=== PATIENT | female | born 1950 | race Caucasian/White ===

== ENCOUNTER 2016-11-02 14:00 | Emergency (ER) | payer SELFPAY ==
[~2016-11-02] VITALS: Ht 154.9 cm; Wt 62.8 kg
[2016-11-02 14:40] VITALS: BP 111/68
[2016-11-02] MEDS ORDERED: LISINOPRIL-HCT1 EAC3 PO (17:31)
[2016-11-02] MEDS ORDERED: KLOR-CON 88 MEQ PO (17:31)
[2016-11-02 18:56] LABS: HEMATOCRIT 38.6 % (36.0-46.0); MCH 33.8 PG (29.0-34.0); MCHC 34.2 G/DL (30.0-36.0); MEAN PLAT.VOLUME 9.5 uM^3 (9.5-12.4); PLATELET COUNT 288 K/uL (156-360); RBC DIS.WIDTH-CV 12.3 % (11.8-14.6); RBC DIS.WIDTH-SD 43.5 % (39-53); WHITE BLOOD COUNT 5.4 K/uL (4.1-10.2)
[2016-11-02 19:05] LABS: CHLORIDE 96 mEq/L (99-109); POTASSIUM 4.1 mEq/L (3.7-5.4); SODIUM 136 mEq/L (136-147)
[2016-11-02 19:07] LABS: GLUCOSE 102 mg/dL (70-99)
[2016-11-02 19:08] LABS: ANION GAP 13 MEQ/L (2-14)
[2016-11-02 19:09] LABS: TOTAL BILIRUBIN 0.5 mg/dL (0.0-1.0)
[2016-11-02 19:10] LABS: ALKALINE PHOSPHATASE 90 IU/L (3-129)
[2016-11-02 19:11] LABS: GFR ESTIMATE (CALCULATED) 40 mL/min/
[2016-11-02 19:12] LABS: UREA NITROGEN (BUN) 24 mg/dL (9-23)
[2016-11-02 19:14] LABS: URIC ACID 9.6 mg/dL (3.1-9.2)
[2016-11-02 19:55] LABS: ERTH.SED.RATE 41 MM/HR (0-30)
[2016-11-02 19:58] LABS: C-REACTIVE PROTEIN 9.1 MG/L (0-10); SAMPLE HEMOLYSIS CHECK 0; SAMPLE ICTERIC CHECK 0; SAMPLE LIPEMIA CHECK 0
[2016-11-02] MEDS ORDERED: PERCOCET 5/31 TABLET PO (21:17)
[2016-11-02] MEDS ORDERED: KEFLEX500 MG PO (21:17)
== END 2016-11-02 21:58 | disposition home or self-care (01) ==
LOC: EME 14:00
PROVIDERS: Nurse Practitioner Family
PROC: 0H9GXZZ Drainage of Left Hand Skin, External Approach (ICD-10-PCS; principal; 2016-11-02)
DX: L02.512 Cutaneous abscess of left hand (principal); N28.9 Disorder of kidney and ureter, unspecified; R79.89 Other specified abnormal findings of blood chemistry; I10 Essential (primary) hypertension
CPT/HCPCS: 73130; 80053; 84550; 85027; 85651; 86140; 87070; 87075; 87205; 99281; 99284; S0020